=== PATIENT | female | born 1970 | race Caucasian/White ===

== ENCOUNTER → 2023-02-09 | Outpatient (CLI) | payer OTHER | END | disposition home or self-care (01) | LOC: RAH 15:33 | PROVIDERS: ATTEND Internal Medicine | DX: J44.9 Chronic obstructive pulmonary disease, unspecified (principal); I70.0 Atherosclerosis of aorta; I10 Essential (primary) hypertension; M06.9 Rheumatoid arthritis, unspecified; M47.815 Spondylosis without myelopathy or radiculopathy, thoracolumbar region; M48.07 Spinal stenosis, lumbosacral region | CPT/HCPCS: 71046; 72100 ==